=== PATIENT | female | born 1940 | race Caucasian/White ===

== ENCOUNTER 2024-08-02 11:25 | Emergency (ER) | payer MEDICARE, OTHER, SELFPAY ==
[2024-08-02 11:26] VITALS: BP 175/112; PULSE 82; RESP 16; TEMP 36.4; O2SAT 96; BMI 23.6
--- NOTE | 2024-08-02 12:23 | CT_ITS ---
EXAM: CT Angiography Chest Without and With Intravenous Contrast CLINICAL INDICATION: HEMOPTYSIS, COUGH, HX OF DVT TECHNIQUE: Axial computed tomographic angiography images of the chest without and with intravenous contrast. This CT exam was performed using one or more of the following dose reduction techniques: automated exposure control, adjustment of the mA and/or kV according to patient size, and/or use of iterative reconstruction technique. MIP reconstructed images were created and reviewed. COMPARISON: No relevant prior studies available. FINDINGS: LIMITATIONS: Suboptimal opacification of the pulmonary arteries. PULMONARY ARTERIES: No pulmonary embolism is identified. Some of the distal pulmonary arteries cannot be evaluated due to suboptimal opacification. AORTA: Scattered calcified atherosclerotic disease of aorta. No thoracic aortic aneurysm. LUNGS AND PLEURAL SPACES: Lung emphysema/COPD. Lobulated pulmonary nodule of the lateral left upper lobe measuring up to 1.6 cm. This could be further evaluated with tissue biopsy or PET-CT. No consolidation. No significant effusion. No pneumothorax. HEART: Unremarkable. No cardiomegaly. No significant pericardial effusion. No evidence of RV dysfunction. BONES/JOINTS: No acute fracture. No dislocation. SOFT TISSUES: Unremarkable. LYMPH NODES: Unremarkable. No enlarged lymph nodes. CT/CTA Chest W/WO Contrast IMPRESSION: 1. No pulmonary embolism is identified. Some of the distal pulmonary arteries cannot be evaluated due to suboptimal opacification. 2. Lobulated pulmonary nodule of the lateral left upper lobe measuring up to 1 .6 cm. This could be further evaluated with tissue biopsy or PET-CT. Reading Location: [id number]
--- NOTE | 2024-08-02 12:24 | EKG12_ITS ---
Test Reason : CHEST DISCOMFORT Blood Pressure : */* mmHG Vent. Rate : 79 BPM Atrial Rate : 79 BPM P-R Int : 178 ms QRS Dur : 106 ms QT Int : 426 ms P-R-T Axes : 96 2 40 degrees QTcB Int : 488 ms Normal sinus rhythm Incomplete right bundle branch block Nonspecific T wave abnormality Abnormal ECG Confirmed by SCHUYLER RIGGS, MAI ([id number]), development editor ELIU ANNE ([id number]) on 08/03/2024 9:24:40 AM Referred By: Confirmed By: MAI PAYAN MD
--- NOTE | 2024-08-02 12:25 | EX.ED.DYSGE1 ---
HPI History of Present Illness Chief Complaint: Chest Other Detail of Chief Complaint: Cough and hemoptysis Informant: patient and spouse/S.O. Narrative Narrative: Patient presents to the emergency department with complaint of cough and mopped assist that started 4 days ago. Patient states that she lives in [place] but came to visit [place] 2 weeks ago. They flew to [place] and then drove down a [place]. Patient has remote history of DVT and states she was taken off anticoagulation about 2 months ago. She had been on Eliquis prior. Patient also states that she has a left upper lobe lesion that she is known about her about 9 years that they have been following and it has not been growing. She think she had subjective fever 4 days ago but none since. Cough mostly nonproductive. Some chest discomfort with deep breath. [facility] Medical History (Updated 08/02/24 @ 15:[address] Isrrael Reeves, DO) DVT (deep venous thrombosis) High cholesterol Right bundle branch block (RBBB) Home Medications ?Medication ?Instructions ?Recorded ?Last Taken ?Type Lactobacillus acidophilus 10 10,000 mmu cells PO DAILY 08/02/24 08/02/24 History billion cell capsule ([facility]) ZINC 1 tab PO DAILY 08/02/24 08/02/24 History ascorbic acid (vitamin C) 500 mg 500 mg PO BID 08/02/24 08/02/24 History capsule azithromycin 250 mg tablet 250 mg PO DAILY 4 days #4 tabs 08/02/24 Unknown Rx (Zithromax) cholecalciferol (vitamin D3) 50 50 mcg PO DAILY 08/02/24 08/02/24 History mcg (2,000 unit) capsule (D3-2000) liothyronine 25 mcg tablet 25 mcg PO DAILY 08/02/24 08/02/24 History (Cytomel) lisinopril 20 mg tablet 20 mg PO DAILY 08/02/24 Unknown History Allergy/AdvReac Type Severity Reaction Status Date / Time cefdinir Allergy RASH Verified 08/02/24 12:25 cigarette smoke Allergy BREATHING Verified 08/02/24 12:25 Iodinated Contrast Media Allergy Rash Verified 08/02/24 12:25 (iodine contrast) levofloxacin Allergy Rash Verified 08/02/24 12:25 mold (mold spores) Allergy BREATHING Verified 08/02/24 12:25 Penicillins Allergy Rash Verified 08/02/24 12:25 Sulfa (Sulfonamide Allergy Rash Verified 08/02/24 12:25 Antibiotics) (sulfa drugs) albuterol AdvReac TACHYCARDIA Verified 08/02/24 12:25 Surgical History (Updated 08/02/24 @ 12:22 by Latisha Moon) History of cholecystectomy Social History Smoking Status: Never smoker ROS ROS ED Review of Systems ROS Unobtainable: other Constitutional Constitutional ED: Reports lethargy; Denies chills, fever(s), sweats or weight loss Eyes Eyes: Denies blurry vision, change in vision or diplopia ENT ENT ED: Denies rhinorrhea or sore throat Cardiovascular Cardiovascular: Reports chest pain; Denies orthopnea or racing heartbeat Respiratory/Chest Respiratory/Chest: Reports cough, dyspnea and dyspnea on exertion; Denies orthopnea or sputum Gastrointestinal Gastrointestinal: Denies abdominal pain, diarrhea, nausea or vomiting Genitourinary Genitourinary ED: Denies dysuria, hematuria or urinary frequency Musculoskeletal Musculoskeletal: Denies arthralgias, back pain, myalgias or neck pain Integumentary Denies abscess, Abrasions or rash Neurologic Neurologic: Denies headache(s) or weakness Psychiatric Psychiatric: Denies anxiety, depression or suicidal thoughts Endocrine Endocrinology: Denies polydipsia, polyphagia or polyuria Hematologic/Lymphatic Hematologic/Lymphatic: Denies easy bleeding, easy bruising or lymphadenopathy Allergic/Immunologic Allergic/Immunologic ED: Denies mouth swelling, tongue swelling or urticaria EXAM Physical Exam Const Vital Signs: 08/02/24 11:26 08/02/24 12:10 08/02/24 13:10 Temperature 97.6 F L 97.9 F Temperature Source Temporal Oral Pulse Rate 82 77 Respiratory Rate 16 16 Respiratory Effort Normal Blood Pressure 175/112 H 146/70 H Blood Pressure Mean 133 95 Pulse Ox 96 99 Oxygen Delivery Method Room Air Room Air 08/02/24 14:58 Temperature Temperature Source Pulse Rate 75 Respiratory Rate 16 Respiratory Effort Blood Pressure 159/72 H Blood Pressure Mean 101 Pulse Ox 95 Oxygen Delivery Method Room Air Positive well nourished and well developed General Appearance ED: well developed and NAD HEENT Reports TM's clear and moist mucous membranes normocephalic and atraumatic; Negative for trauma or tenderness Tympanic Membrane ED: Yes TM's clear Eyes PERRL and EOMs intact bilaterally General Eye ED: Negative for pale conjunctiva or scleral icterus Neck no lymphadenopathy, supple and no JVD General: Negative for tenderness Chest Wall inspection of chest normal and palpation of chest normal Chest: Negative for tenderness Resp normal respiratory effort and clear to auscultation bilaterally Effort and Inspection: Negative for respiratory distress or pain with movement Auscultation: Negative for rhonchi, wheezes or diminished lung sounds Cardio regular rate, regular rhythm, S1 normal heart sound, S2 normal heart sound and no murmurs Peripheral Pulses: pulses 2+ throughout GI normal to inspection, nondistended, normoactive bowel sounds, soft to palpation, non-tender, non-distended and no masses Back/Spine no CVA tenderness and no thoracic nor lumbar tenderness Extremity normal to inspection General Extremety ED: Negative for edema General Extremity: Negative for edema Neuro oriented x3, CN's II-XII intact bilaterally, no sensory deficits noted and gait normal Sensorium / Orientation: awake, alert, oriented to person, oriented to place and oriented to time Motor Exam: strength 5/5 throughout and strength abnormal Psych mental status grossly normal Skin no rashes or lesions noted and no wounds MDM MDM MDM Narrative Medical decision making narrative: Patient presents with cough that started 4 days ago and hemoptysis that started yesterday. Recently traveled from [place] and will be in [place] until September. Remote history of DVT however no longer currently anticoagulated as she was taken off her Eliquis about 2 months ago. In the differential would be bronchitis or pneumonia versus PE potentially. She is not hypoxic and not tachycardic. IV line established. CBC with differential obtained showing a 6.7 with hemoglobin 13.6 and platelet count of 307. Chemistries were unremarkable. Troponin was normal at 9. EKG obtained on arrival showed a sinus rhythm with ventricular rate of 79 bpm with an incomplete right bundle branch block and nonspecific ST changes. CTA of the chest was obtained to rule out PE and this had suboptimal opacification of the distal pulmonary arteries however no obvious central PEs noted. There was a small 1.6 cm nodule left upper lobe that she is known about and is currently being followed by other physicians. This point the cause of her hemoptysis unclear although I suspect may be irritation from coughing. She has bringing up some blood-tinged phlegm and certainly this is mild hemoptysis. Will treat with Zithromax and refer to pulmonology. Advised to return if increased difficulty breathing, persistent heavy bleeding or passing clots or condition should worsen anyway. Lab Data Attestation: I reviewed the patient's lab results. Labs: Laboratory Results - last 24 hr 08/02/24 12:40 WBC 6.7 RBC 4.67 Hgb 13.6 Hct 39.4 MCV 84.4 MCH 29.1 MCHC 34.5 RDW Std Deviation 39.8 RDW Coeff of Ly 12.9 Plt Count 307 MPV 9.9 Immature Gran % (Auto) 0.300 Neut % (Auto) 44.0 L Lymph % (Auto) 41.7 H [place] % (Auto) 8.5 Eos % (Auto) 4.9 Baso % (Auto) 0.6 Absolute Neuts (auto) 3.0 Absolute Lymphs (auto) 2.81 Nucleated RBC % 0 Sodium 139 Potassium 4.0 Chloride 105 Carbon Dioxide 20.6 L Anion Gap 13 BUN 20 H Creatinine 0.66 L Estim Creat Clear Calc 46.26 L Est GFR (MDRD) Non-Af 86 BUN/Creatinine Ratio 29.8 H Glucose 109 H Calcium 9.5 Troponin T High Sens 9 Radiography Diagnostic Testing: Clinical Impression(s) from Imaging Studies Chest CTA 08/02/24 12:23 IMPRESSION: 1. No pulmonary embolism is identified. Some of the distal pulmonary arteries cannot be evaluated due to suboptimal opacification. 2. Lobulated pulmonary nodule of the lateral left upper lobe measuring up to 1.6 cm. This could be further evaluated with tissue biopsy or PET-CT. Reading Location: [facility] EKG Initial EKG: Attestation: I personally reviewed and interpreted this EKG as follows: Comments: Sinus rhythm with rate of 79 bpm with incomplete right bundle branch block and nonspecific ST changes Discharge Plan Triage Chief Complaint: Chest Other ED Provider: Isrrael Reeves Dx/Rx/DC Orders Clinical Impression: Bronchitis, Hemoptysis Instructions: ED Upper Resp Infec Abx Tx, ED Hemoptysis Prescriptions: New azithromycin [Zithromax] 250 mg tablet 250 mg PO DAILY 4 Days Qty: 4 0RF Rx Instructions: start on day 2 of therapy No Action liothyronine [Cytomel] 25 mcg tablet 25 mcg PO DAILY lisinopril 20 mg tablet 20 mg PO DAILY ascorbic acid (vitamin C) 500 mg capsule 500 mg PO BID cholecalciferol (vitamin D3) [D3-2000] 50 mcg (2,000 unit) capsule 50 mcg PO DAILY ZINC 80 mg tablet 1 tab PO DAILY Patient Comments: PT STATES SHE GETS 80MG AT [facility] 10 billion cell capsule 10,000 mmu cells PO DAILY Primary Care Provider: Doug Eng MD Referrals: Derrick Fajardo DO [Med Staff - Active Staff] - 3-5 Days Kuldeep Dang Chi, MD [Med Staff - Active Staff] - Print Language: Maori Disposition Disposition: Home, Self Care
[2024-08-02] MEDS: 0.9% Normal Saline (1000mL) 1,000 ML 150 ML IV (12:42)
[2024-08-02 12:55] LABS: Absolute Lymphocyte Count 2.81 X10^3/uL (0.83-4.51); Basophil# 0.04 X10^3/uL; Basophil% 0.6 % (0-1); Eosinophil# 0.33 X10^3/uL; Eosinophils% 4.9 % (0-5); Hematocrit 39.4 % (37-47); Hemoglobin 13.6 g/dL (12.0-15.0); Lymphocyte # 2.81 X10^3/ul (0.83-4.51); Lymphocyte % 41.7 % (19-41); Mean Corp Hgb Conc 34.5 g/dL (32-36); Mean Corpuscular Hgb 29.1 pg (27.0-32.0); Mean Corpuscular Volume 84.4 fL (81-99); Mean Platelet Vol. 9.9 fl (6.2-12.0); Monocyte# 0.57 X10^3/uL; Monocyte% 8.5 % (0-10); NRBC Flagged by Analyzer 0 % (0-5); Neutrophil # 2.97 X10^3/uL (2.7-7.7); Platelet Count 307 K/mm3 (150-450); RBC Distribution Width CV 12.9 % (11.6-14.6); RBC Distribution Width SD 39.8 fl (35.1-43.9); Red Blood Count 4.67 M/mm3 (4.2-5.4); White Blood Count 6.7 K/mm3 (4.4-11.0)
[2024-08-02 13:10] VITALS: BP 146/70; PULSE 77; RESP 16; TEMP 36.6; O2SAT 99
[2024-08-02 13:19] LABS: Troponin T High Sensitivity 9 ng/L (<=14)
[2024-08-02 13:20] LABS: Anion Gap 13 (5-15); BUN 20 mg/dL (4-19); BUN/Creat Ratio 29.8 RATIO (10-20); Calcium,Total 9.5 mg/dL (7.6-11.0); Carbon Dioxide 20.6 mmol/L (21.0-32.0); Chloride 105 mmol/L (98-108); Creatinine, Serum 0.66 mg/dL (0.70-1.20); EST Glomerular Filtration Rate 86 (>60); Estimated Creatinine Clearance 46.26 ml/min (50-250); Glucose 109 mg/dL (70-99); Sodium Level 139 mmol/L (133-145)
[2024-08-02] MEDS: DiphenhydrAMINE 50 MG/ML Syringe IV (13:25)
[2024-08-02] MEDS: MethylPREDNISolone 125 MG/2 ML Vial IV (13:25)
[2024-08-02 14:58] VITALS: BP 159/72; PULSE 75; RESP 16; O2SAT 95
[2024-08-02 15:42] VITALS: BP 165/77; PULSE 74; PULSE 76; RESP 16; TEMP 36.6; O2SAT 94; O2SAT 95
[2024-08-02] MEDS: Azithromycin 250 MG Tablet 500 MG PO (15:48)
== END 2024-08-02 15:58 | disposition home or self-care (01) ==
PROVIDERS: Emergency Provider Emergency Medicine; Visit Provider Emergency Medicine
DX: J40 Bronchitis, not specified as acute or chronic (principal); R04.2 Hemoptysis; Z86.718 Personal history of other venous thrombosis and embolism; I45.10 Unspecified right bundle-branch block; E78.00 Pure hypercholesterolemia, unspecified; Z79.899 Other long term (current) drug therapy; Z90.49 Acquired absence of other specified parts of digestive tract; R50.9 Fever, unspecified
CPT/HCPCS: 71275; 80048; 84484; 85025; 87631; 93005; 96360; 96361; 99284; Q9967; A4216